=== PATIENT | male | born 1985 | race Asian ===

== ENCOUNTER 2021-07-19 08:00 | Outpatient (CLI) | payer BC ==
[2021-07-19 17:57] LABS: BASOPHILS # (AUTO) 0.1 10^3/uL (0.0-0.1); EOSINOPHILS # (AUTO) 0.5 10^3/uL (0.0-0.7); EOSINOPHILS % (AUTO) 3.9 %; HCT - HEMATOCRIT 50.1 % (42.0-52.0); HGB - HEMOGLOBIN 16.3 g/dL (14.0-18.0); LYMPHOCYTES # (AUTO) 2.5 10^3/uL (1.5-3.5); LYMPHOCYTES % (AUTO) 21.9 %; MEAN CORPUSCULAR HEMOGLOBIN 29.8 pg (27.0-31.0); MEAN CORPUSCULAR HGB CONC 32.5 g/dL (32.0-36.0); MEAN CORPUSCULAR VOLUME 91.6 fL (80.0-94.0); MEAN PLATELET VOLUME 10.1 fL (7.4-11.4); MONOCYTES % (AUTO) 8.7 %; NEUTROPHILS # (AUTO) 7.4 10^3/uL (1.5-6.6); NEUTROPHILS % (AUTO) 63.9 %; PLT - PLATELET COUNT 361 10^3/uL (130-450); RED BLOOD COUNT 5.47 10^6/uL (4.70-6.10); RED CELL DISTRIBUTION WIDTH 13.2 % (12.0-15.0); WHITE BLOOD COUNT 11.6 x10^3/uL (4.8-10.8)
[2021-07-19 18:14] LABS: ALBUMIN 4.8 g/dL (3.2-5.5); ALBUMIN/GLOBULIN RATIO 1.4 (1.0-2.2); ALKALINE PHOSPHATASE 60 IU/L (42-121); ALT ALANINE AMINOTRANSFERASE 54 IU/L (10-60); AST ASPARTATE AMINOTRANSFERASE 53 IU/L (10-42); BILIRUBIN,TOTAL 1.1 mg/dL (0.2-1.0); BUN - BLOOD UREA NITROGEN 11 mg/dL (6-20); CALCIUM 9.5 mg/dL (8.5-10.3); CARBON DIOXIDE - CO2 28 mmol/L (21-32); CHLORIDE 102 mmol/L (101-111); CHOLESTEROL 233 mg/dL; CREATININE 0.9 mg/dL (0.6-1.2); GFR - MDRD 95 (>89); GLUCOSE 98 mg/dL (70-100); HDL CHOLESTEROL 58 mg/dL; LDL CHOLESTEROL,CALCULATED 154 mg/dL; LDL/HDL RATIO 2.7 (<3.6); POTASSIUM 4.4 mmol/L (3.5-5.0); SODIUM 139 mmol/L (135-145); TOTAL PROTEIN 8.3 g/dL (6.7-8.2); TRIGLYCERIDES 104 mg/dL; VLDL CHOLESTEROL 21 mg/dL
[2021-07-19 19:53] LABS: ESTIMATED AVERAGE GLUCOSE 105 mg/dL (70-100); HEMOGLOBIN A1c% 5.3 % (4.27-6.07)
[2021-07-19 20:32] LABS: CHLAMYDIA TRACHOMATIS DNA NEGATIVE (NEGATIVE); NEISSERIA GONORRHOEAE DNA NEGATIVE (NEGATIVE)
[2021-07-20 12:36] LABS: HIV AG/AB 4TH GEN NON-REACTIVE (NON-REACTIVE)
== END 2021-07-19 23:59 | disposition home or self-care (01) ==
LOC: LAB.WCP 08:00
PROVIDERS: ATTEND Family Medicine
DX: Z00.00 Encounter for general adult medical examination without abnormal findings (principal); Z11.3 Encounter for screening for infections with a predominantly sexual mode of transmission
CPT/HCPCS: 36415; 80053; 80061; 83036; 83721; 85025; 86592; 87389; 87491; 87591; 87661

== ENCOUNTER 2022-06-17 09:59 | Outpatient (CLI) | payer BC ==
[2022-06-17 19:22] LABS: BASOPHILS # (AUTO) 0.1 10^3/uL (0.0-0.1); BASOPHILS % (AUTO) 1.2 %; EOSINOPHILS # (AUTO) 0.7 10^3/uL (0.0-0.7); EOSINOPHILS % (AUTO) 6.2 %; HCT - HEMATOCRIT 48.5 % (42.0-52.0); HGB - HEMOGLOBIN 16.1 g/dL (14.0-18.0); LYMPHOCYTES # (AUTO) 2.8 10^3/uL (1.5-3.5); LYMPHOCYTES % (AUTO) 23.6 %; MEAN CORPUSCULAR HEMOGLOBIN 29.5 pg (27.0-31.0); MEAN CORPUSCULAR HGB CONC 33.2 g/dL (32.0-36.0); MEAN PLATELET VOLUME 10.3 fL (7.4-11.4); MONOCYTES # (AUTO) 1.1 10^3/uL (0.0-1.0); MONOCYTES % (AUTO) 9.5 %; NEUTROPHILS # (AUTO) 6.9 10^3/uL (1.5-6.6); NEUTROPHILS % (AUTO) 58.8 %; PLT - PLATELET COUNT 303 10^3/uL (130-450); RED BLOOD COUNT 5.45 10^6/uL (4.70-6.10); RED CELL DISTRIBUTION WIDTH 12.8 % (12.0-15.0); WHITE BLOOD COUNT 11.8 x10^3/uL (4.8-10.8)
[2022-06-17 19:44] LABS: ALBUMIN 4.6 g/dL (3.2-5.5); ALBUMIN/GLOBULIN RATIO 1.4 (1.0-2.2); ALKALINE PHOSPHATASE 53 IU/L (42-121); ALT ALANINE AMINOTRANSFERASE 42 IU/L (10-60); AST ASPARTATE AMINOTRANSFERASE 29 IU/L (10-42); BUN - BLOOD UREA NITROGEN 13 mg/dL (6-20); CALCIUM 9.2 mg/dL (8.5-10.3); CARBON DIOXIDE - CO2 28 mmol/L (21-32); CHLORIDE 105 mmol/L (101-111); CHOL/HDL RATIO 4.6 (<5.0); CHOLESTEROL 231 mg/dL; CREATININE 0.9 mg/dL (0.6-1.2); GFR - MDRD 94 (>89); GLUCOSE 94 mg/dL (70-100); HDL CHOLESTEROL 50 mg/dL; LDL CHOLESTEROL,CALCULATED 164 mg/dL; LDL/HDL RATIO 3.3 (<3.6); POTASSIUM 4.3 mmol/L (3.5-5.0); SODIUM 139 mmol/L (135-145); TRIGLYCERIDES 85 mg/dL; VLDL CHOLESTEROL 17 mg/dL
== END 2022-06-17 10:00 | disposition home or self-care (01) ==
LOC: LAB.N 09:59
PROVIDERS: ATTEND Physician Assistant
DX: E78.5 Hyperlipidemia, unspecified (principal); R74.8 Abnormal levels of other serum enzymes
CPT/HCPCS: 36415; 80053; 80061; 83721; 85025

== ENCOUNTER 2023-05-24 06:49 | Outpatient (CLI) | payer BC ==
[2023-05-24 07:36] LABS: ALBUMIN 4.5 g/dL (3.2-5.5); ALBUMIN/GLOBULIN RATIO 1.6 (1.0-2.2); BILIRUBIN,TOTAL 0.5 mg/dL (0.2-1.0); CALCIUM 9.3 mg/dL (8.5-10.3); CREATININE 1.1 mg/dL (0.6-1.3); POTASSIUM 4.1 mmol/L (3.5-4.5); TOTAL PROTEIN 7.3 g/dL (6.4-8.9)
[2023-05-24 08:59] LABS: ESTIMATED AVERAGE GLUCOSE 108 mg/dL (70-100); HEMOGLOBIN A1c% 5.4 % (4.27-6.07)
== END 2023-05-24 06:50 | disposition home or self-care (01) ==
LOC: LAB 06:49
PROVIDERS: ATTEND Physician Assistant
DX: R74.01 Elevation of levels of liver transaminase levels (principal); Z13.1 Encounter for screening for diabetes mellitus
CPT/HCPCS: 36415; 80053; 83036

== ENCOUNTER 2024-06-02 08:54 | Day surgery (SDC) | payer BC ==
[2024-06-02] MEDS: LACTATED RINGERS 1,000 ML IV ONE ×2 (09:16→11:17)
[2024-06-02] MEDS ORDERED: PROPOFOL 500 MG/50 ML 500 MG/50 ML VIAL ONE (09:25)
[2024-06-02] MEDS ORDERED: fentaNYL 100 MCG/2 ML VIAL ONE (09:25)
[2024-06-02] MEDS ORDERED: MIDAZOLAM 2 MG/2 ML VIAL ONE (09:25)
--- NOTE | 2024-06-02 09:33 | ANESTHESIA ---
Pre-Anesthesia VS, & Labs - Diagnosis desires sterility - Procedure vasectomy Vital Signs: Temp Pulse Resp BP Pulse Ox O2 Flow Rate 36.5 C 77 16 129/52 L 98 06/02/24 09:12 06/02/24 09:12 06/02/24 09:12 06/02/24 09:12 06/02/24 09:12 Height: 5 ft 2 in Weight (kg): 65 kg Body Mass Index: 26.2 BMI Classification: Overweight - NPO >8 hours - Lab Results Lab results reviewed: Yes Home Medications and Allergies No Known Home Medications 11/05/15 Allergies/Adverse Reactions: Allergies Allergy/AdvReac Type Severity Reaction Status Date / Time No Known Drug Allergies Allergy Verified 11/05/15 13:25 Anes History & Medical History - Anesthetic History Anesthesia Complications: reports: No previous complications Family history of Anesthesia Complications: Denies Family history of Malignant Hyperthermia: Denies - Medical History Cardiovascular: reports: None Pulmonary: reports: None Gastrointestinal: reports: None Urinary: reports: None Musculoskeletal: reports: None Endocrine/Autoimmune: reports: None Skin: reports: None Smoking Status: Current every day smoker Exam General: Alert, Oriented x3, Cooperative Dental: Partials Lower Mouth Openin Fingerbreadth Neck Mobility: Normal Mallampati classification: II Thyromental Distance: 4-6 cm Respiratory: Lungs clear, Normal breath sounds, No respiratory distress Cardiovascular: Regular rate Neurological: Normal speech Mental/Cognitive Status: Alert/Oriented X3, Normal for patient Cognitive Status: Within normal limits Plan Anesthesia Type: Total IV Consent for Procedure(s) Verified and Reviewed: Yes Code Status: Attempt Resuscitation ASA classification: 2-Mild systemic disease Is this case an emergency?: No
[2024-06-02] MEDS ORDERED: lidocaine 1% 20 ML MDV ONE (10:32)
[2024-06-02] MEDS: LIDOCAINE 1% 50 ML MDV SUBQ ONE (10:56)
[2024-06-02 11:42] VITALS: BP 105/75; O2SAT 97
--- NOTE | 2024-06-02 11:43 | Discharge Plan ---
Discharge Plan Problem Reviewed?: Yes Disposition: 01 Home, Self Care Condition: Good Diet: Regular Activity Restrictions: Additional Comments (as instructed) Shower Restrictions: No (no bathing for one week) Driving Restrictions: No Instruction Topics: Vasectomy No Scalpel Additional Instructions or Follow Up instructions: After three months, contact Dr Kaur's office to arrange for you to drop off a semen sample at a lab to confirm no more sperm No Smoking: If you smoke, Please STOP! Call for help.
--- NOTE | 2024-06-02 11:47 | OPERATIVE REPORT ---
Operative Report - General Procedure Date: 06/02/24 Planned Procedure: Bilateral Vasectomy Pre-Op Diagnosis: elective sterilization Procedure Performed: Bilateral Vasectomy Post Op Diagnosis: elective sterilization - Procedure Note Primary Surgeon: Vincent Anesthesia Provider: MADAY Martell Anesthesia Technique: MAC Pathology: none Estimated Blood Loss (mL): 0 Findings: normal vasectomy - Other Other Information/Narrative: After informed consent obtained patient brought to the OR and laid in supine position. The patient was anesthetized per anesthesia protocols and then prepped and draped in usual sterile fashion. A formal timeout was performed reconfirming the patient, procedure and laterality He is vas deferens identified through his right hemiscrotum. 1% lidocaine was used as local. Using a sharp mosquito is scrotal tissue was dissected away and his vas sheath was grasped using a ring clamp. This was sharply incised and the vas was identified and pulled out. It was clamped on both sides and the intervening 1 cm segment was cauterized away. The ends were cauterized as well. The ends were suture-ligated with chromic suture and then the distal end was buried using a fascial interposition stitch using 3-0 chromic suture. There was no bleeding. His skin was closed using a 3-0 chromic horizontal mattress stitch. An identical procedure performed on the left side. Band-Aids were placed. This concluded the procedure and the patient tolerated the procedure well. All counts were correct. He will have a semen analysis performed in 3 months to confirm azoospermia.
--- NOTE | 2024-06-02 16:12 | ANESTHESIA POST OP EVALUATION ---
Anesthesia Post Eval - Post Anesthesia Eval Vitals: Last Vital Signs Temp 36.2 C L 06/02/24 11:30 Pulse 74 06/02/24 11:30 Resp 16 06/02/24 11:30 BP 105/75 06/02/24 11:30 Pulse Ox 97 06/02/24 11:30 O2 Flow Rate CV Function Including HR & BP: Stable Pain Control: Satisfactory Nausea & Vomiting: Negative Mental Status: Baseline Respiratory Status: Airway Patent Hydration Status: Satisfactory Anesthesia Complications: None
== END 2024-06-02 08:55 | disposition home or self-care (01) ==
LOC: SDS 08:54
PROVIDERS: ATTEND Urology
DX: Z30.2 Encounter for sterilization (principal); F17.200 Nicotine dependence, unspecified, uncomplicated
CPT/HCPCS: 55250; J7120